=== PATIENT | male | born 1950 | race Caucasian/White ===

== ENCOUNTER 2019-02-05 09:17 | Outpatient (CLI) | payer MEDICARE ==
--- NOTE | 2019-02-05 09:39 | ULT ---
Bilateral renal ultrasound CLINICAL INDICATION: Renal Insufficiency COMPARISON: None FINDINGS: Right kidney: No solid mass, or hydronephrosis. Left kidney: Foci of decreased echogenicity of the left kidney are present. These indicate cysts and measure up to approximately 1.8 cm in diameter. No overt hydronephrosis. Urinary bladder: Normal IMPRESSION: Left renal cysts
== END 2019-02-05 09:18 | disposition home or self-care (01) ==
LOC: SCSULT 09:17
PROVIDERS: ATTEND Internal Medicine Nephrology
DX: N18.3 Chronic kidney disease, stage 3 (moderate) (principal)
CPT/HCPCS: 76770

== ENCOUNTER 2020-12-02 15:43 | Outpatient (CLI) | payer MEDICARE ==
[2020-12-02 16:39] LABS: #Basophils 0.1 10x3/uL (0.0-0.2); #Eosinphils 0.4 10x3/uL (0.0-0.5); #Monocytes 0.5 10x3/uL (0.0-1.1); #Neutrophils 5.6 10x3/uL (1.5-8.4); %Basophils 0.7 % (0.0-2.0); %Eosinophils 4.3 % (0.0-6.0); %Lymphocytes 26.3 % (18.0-47.0); %Monocytes 5.9 % (0.0-10.0); Hemoglobin 15.9 g/dL (13.5-17.5); Mean Corpuscular HGB CONC 34.3 g/dL (32.0-36.0); Mean Corpuscular Hemoglobin 32.1 pg (27.0-33.0); Mean Corpuscular Volume 93.5 fl (81.2-95.1); Mean Platelet Volume 10.8 fl (7.4-10.4); Platelet Count 271 10x3/uL (150-450); RBC Distribution Width 13.9 % (11.5-14.5); Red Blood Cell (RBC) Count 4.95 10x6/uL (4.32-5.72)
[2020-12-02 17:02] LABS: Anion Gap 16 mmol/L (10-20); BUN (Urea Nitrogen) 16 mg/dL (8.4-25.7); Calc. Creatinine Clearance 0 mL/min (70-130); Calcium 9.6 mg/dL (7.8-10.44); Carbon Dioxide 24 mmol/L (23-31); Chloride 104 mmol/L (98-107); Glucose 122 mg/dL (83-110); Potassium 4.4 mmol/L (3.5-5.1); Sodium 140 mmol/L (136-145)
[2020-12-03 00:58] LABS: SARS-CoV-2 PCR by NAA Not Detected (NotDetected)
== END 2020-12-02 15:44 | disposition home or self-care (01) ==
LOC: LABBT 15:43
PROVIDERS: ATTEND Orthopaedic Surgery Hand Surgery
DX: Z01.818 Encounter for other preprocedural examination (principal); M65.312 Trigger thumb, left thumb; Z20.822 Contact with and (suspected) exposure to COVID-19
CPT/HCPCS: 80048; 85025; 93005; U0003; U0005; 87635; 93010

== ENCOUNTER 2020-12-05 08:04 | Day surgery (SDC) | payer MEDICARE ==
[2020-12-03 11:42] VITALS: BMI 37.3
[2020-12-05] MEDS ORDERED: Betamet Acet/Betamet Na Ph 30 MG/5 ML VIAL ONE (09:25)
[2020-12-05] MEDS ORDERED: Bupivacaine PF 0.5% 30 ML VIAL ONE (09:25)
[2020-12-05] MEDS ORDERED: Bacitracin Zinc Ointment 30 gm TUBE ONE (09:25)
[2020-12-05] MEDS ORDERED: Sodium Chloride 0.9% 10 ML ONE (09:25)
[2020-12-05] MEDS ORDERED: Fentanyl 100 MCG/2 ML VIAL ONE (09:34)
[2020-12-05] MEDS ORDERED: Midazolam HCl 2 mg/2 ml Vial ONE (09:34)
[2020-12-05] MEDS ORDERED: Bupivacaine HCl 0.5%/Epinephrine 1:200,000/PF 30 ml Vial ONE (10:01)
[2020-12-05] MEDS ORDERED: ePHEDrine Sulfate 50 MG/10 ML VIAL ONE (10:01)
[2020-12-05] MEDS ORDERED: PHENYLEPHRINE-NS 100 MCG/ML 10 ML SYRINGE ONE (10:01)
[2020-12-05] MEDS ORDERED: Lidocaine 1% PF 5 ML VIAL ONE (10:01)
[2020-12-05] MEDS ORDERED: PROPOFOL 200 MG/20 ML VIAL ONE (10:01)
[2020-12-05] MEDS ORDERED: Ketorolac Tromethamine 30 MG/ML VIAL ONE (10:55)
== END 2020-12-05 12:01 | disposition home or self-care (01) ==
LOC: SDC 08:04
PROVIDERS: ATTEND Orthopaedic Surgery Hand Surgery
PROC: 0LN80ZZ Release Left Hand Tendon, Open Approach (ICD-10-PCS; principal; 2020-12-05)
DX: M65.312 Trigger thumb, left thumb (principal); G56.22 Lesion of ulnar nerve, left upper limb; G56.12 Other lesions of median nerve, left upper limb; G56.02 Carpal tunnel syndrome, left upper limb; I11.0 Hypertensive heart disease with heart failure; I50.32 Chronic diastolic (congestive) heart failure; I25.10 Atherosclerotic heart disease of native coronary artery without angina pectoris; G47.30 Sleep apnea, unspecified; E78.2 Mixed hyperlipidemia; E66.9 Obesity, unspecified; Z68.37 Body mass index [BMI] 37.0-37.9, adult; Z85.038 Personal history of other malignant neoplasm of large intestine; Z86.16 Personal history of COVID-19; Z87.891 Personal history of nicotine dependence; Z79.82 Long term (current) use of aspirin; Z79.899 Other long term (current) drug therapy; Z95.5 Presence of coronary angioplasty implant and graft
CPT/HCPCS: J0690; J0702; J1885; J2250; J2704; J3010; J3490; S0020

== ENCOUNTER 2021-01-08 13:20 | Outpatient (CLI) | payer MEDICARE | END 2021-01-08 13:21 | disposition home or self-care (01) | LOC: BICMAMMO 13:20 | PROVIDERS: ATTEND Orthopaedic Surgery | DX: Z13.820 Encounter for screening for osteoporosis (principal) | CPT/HCPCS: 77080 ==

== ENCOUNTER 2021-06-09 08:49 | Outpatient (CLI) | payer MEDICARE ==
[2021-06-09 10:00] LABS: Bilirubin Neg (Negative); Blood, Urine Negative (Negative); Clarity Clear (Clear); Glucose, Urine (Dipstick) Normal (Negative); Ketone, Urine Negative (Negative); Leukocyte Negative (Negative); Nitrite Negative (Negative); Protein, Urine (Dipstick) Negative (Neg-Trace); Urobilinogen Normal mg/dL (Less than 2)
[2021-06-09 11:11] LABS: #Basophils 0.1 10x3/uL (0.0-0.2); #Eosinphils 0.3 10x3/uL (0.0-0.5); #Monocytes 0.5 10x3/uL (0.0-1.1); #Neutrophils 5.6 10x3/uL (1.5-8.4); %Basophils 0.6 % (0.0-2.0); %Eosinophils 3.4 % (0.0-6.0); %Lymphocytes 24.1 % (18.0-47.0); %Monocytes 5.5 % (0.0-10.0); %Neutrophils 65.6 % (40.0-75.0); Hemoglobin 17.1 g/dL (13.5-17.5); Mean Corpuscular HGB CONC 33.5 g/dL (32.0-36.0); Mean Corpuscular Hemoglobin 32.4 pg (27.0-33.0); Mean Corpuscular Volume 96.8 fl (81.2-95.1); Mean Platelet Volume 10.5 fl (7.4-10.4); Platelet Count 241 10x3/uL (150-450); RBC Distribution Width 13.3 % (11.5-14.5); Red Blood Cell (RBC) Count 5.27 10x6/uL (4.32-5.72); White Blood Cell (WBC) Count 8.5 10x3/uL (3.5-10.5)
[2021-06-09 11:37] LABS: Anion Gap 15 mmol/L (10-20); BUN (Urea Nitrogen) 16 mg/dL (8.4-25.7); Calc. Creatinine Clearance 0 mL/min (70-130); Calcium 9.7 mg/dL (7.8-10.44); Carbon Dioxide 27 mmol/L (23-31); Chloride 102 mmol/L (98-107); Glucose 111 mg/dL (83-110); Potassium 4.1 mmol/L (3.5-5.1); Sodium 140 mmol/L (136-145)
[2021-06-09 18:02] LABS: SARS-CoV-2 PCR by NAA Not Detected (NotDetected)
== END 2021-06-09 08:50 | disposition home or self-care (01) ==
LOC: LABBT 08:49
PROVIDERS: ATTEND Orthopaedic Surgery Hand Surgery
DX: Z01.818 Encounter for other preprocedural examination (principal); G56.02 Carpal tunnel syndrome, left upper limb; G56.22 Lesion of ulnar nerve, left upper limb; Z20.822 Contact with and (suspected) exposure to COVID-19
CPT/HCPCS: 71046; 80048; 81003; 85025; U0003; U0005

== ENCOUNTER 2021-06-12 09:50 | Day surgery (SDC) | payer MEDICARE ==
[2021-06-10 13:59] VITALS: BMI 38.3
[2021-06-12] MEDS ORDERED: Bupivacaine PF 0.5% 30 ML VIAL ONE (11:50)
[2021-06-12] MEDS ORDERED: Bacitracin Zinc Ointment 30 gm TUBE ONE (11:50)
[2021-06-12] MEDS ORDERED: Betamet Acet/Betamet Na Ph 30 MG/5 ML VIAL ONE ×2 (11:50→13:37)
[2021-06-12] MEDS ORDERED: Midazolam HCl 2 mg/2 ml Vial ONE ×2 (12:19→12:46)
[2021-06-12] MEDS ORDERED: Fentanyl 100 MCG/2 ML VIAL ONE ×2 (12:19→12:20)
[2021-06-12] MEDS ORDERED: ceFAZolin 2 GM/DEX 5% 100 ML BAG ONE (12:32)
[2021-06-12] MEDS ORDERED: Propofol 1,000 MG/100 ML VIAL IV ONE ×2 (12:38→14:49)
[2021-06-12] MEDS ORDERED: Famotidine/PF 20 mg/2ml Vial ONE (12:45)
[2021-06-12] MEDS ORDERED: Albuterol Sulfate HFA (OR ONLY) ONE ×2 (12:50→12:51)
[2021-06-12] MEDS ORDERED: Ondansetron PF 4 MG/2 ML Vial ONE (12:51)
[2021-06-12] MEDS ORDERED: Bupivacaine HCl 0.5%/Epinephrine 1:200,000/PF 30 ml Vial ONE (12:51)
[2021-06-12] MEDS ORDERED: ePHEDrine 50 MG/ML VIAL ONE (12:51)
[2021-06-12] MEDS ORDERED: Dexamethasone 20 MG/5 ML VIAL ONE (12:51)
[2021-06-12] MEDS ORDERED: PHENYLEPHRINE-NS 100 MCG/ML 10 ML SYRINGE ONE (12:51)
== END 2021-06-12 19:21 | disposition home or self-care (01) ==
LOC: SDC 09:50
PROVIDERS: ATTEND Orthopaedic Surgery Hand Surgery
PROC: 01N50ZZ Release Median Nerve, Open Approach (ICD-10-PCS; principal; 2021-06-12)
PROC: 01N40ZZ Release Ulnar Nerve, Open Approach (ICD-10-PCS; 2021-06-12)
PROC: 3E0T3BZ Introduction of Anesthetic Agent into Peripheral Nerves and Plexi, Percutaneous Approach (ICD-10-PCS; 2021-06-12)
PROC: 0LX80ZZ Transfer Left Hand Tendon, Open Approach (ICD-10-PCS; 2021-06-12)
DX: M21.512 Acquired clawhand, left hand (principal); G56.22 Lesion of ulnar nerve, left upper limb; G56.02 Carpal tunnel syndrome, left upper limb; U09.9 Post COVID-19 condition, unspecified; G56.12 Other lesions of median nerve, left upper limb; M24.542 Contracture, left hand; G62.9 Polyneuropathy, unspecified; I25.10 Atherosclerotic heart disease of native coronary artery without angina pectoris; I73.9 Peripheral vascular disease, unspecified; I11.0 Hypertensive heart disease with heart failure; I50.32 Chronic diastolic (congestive) heart failure; I35.0 Nonrheumatic aortic (valve) stenosis; E78.2 Mixed hyperlipidemia; E66.9 Obesity, unspecified; Z68.38 Body mass index [BMI] 38.0-38.9, adult; Z87.891 Personal history of nicotine dependence; Z79.82 Long term (current) use of aspirin; Z79.899 Other long term (current) drug therapy; Z88.2 Allergy status to sulfonamides; Z88.5 Allergy status to narcotic agent; Z88.8 Allergy status to other drugs, medicaments and biological substances; Z95.5 Presence of coronary angioplasty implant and graft; Z98.890 Other specified postprocedural states
CPT/HCPCS: J0702; J1100; J2250; J2405; J2704; J3010; J3490; S0020; S0028

== ENCOUNTER 2024-08-14 05:55 | Day surgery (SDC) | payer MEDICARE ==
[2024-08-10 12:34] VITALS: BMI 36.9
[~2024-08-14 05:55] MED LIST: EPINEPHrine 0.3 MG in Ophthalmic Irrigation Solution 500 ML IRR SCH
[2024-08-14] MEDS ORDERED: Cyclopentolate 1% Opth Drop 2 ML BOT ONE (06:11)
[2024-08-14] MEDS ORDERED: PHENYLephrine 2.5% Ophth Soln 15 ml Bottle ONE (06:11)
[2024-08-14 06:49] LABS: #Basophils 0.05 10x3/uL (0.0-0.2); %Basophils 0.8 % (0.0-1.0); %Eosinophils 5.8 % (0.0-10.0); %Lymphocytes 30.5 % (21.0-51.0); %Monocytes 8.2 % (0.0-10.0); %Neutrophils 53.6 % (42.0-75.0); Hemoglobin 15.1 g/dL (14.0-18.0); Mean Corpuscular HGB CONC 34.3 g/dL (32.0-36.0); Mean Corpuscular Hemoglobin 34.2 pg (27.0-31.0); Mean Corpuscular Volume 99.8 fL (78.0-98.0); Mean Platelet Volume 10.5 fL (7.4-10.4); Platelet Count 223 10x3/uL (130-400); Red Blood Cell (RBC) Count 4.41 mill/uL (4.70-6.10)
[2024-08-14] MEDS ORDERED: Midazolam HCl 2 mg/2 ml Vial ONE (06:57)
[2024-08-14] MEDS ORDERED: Lidocaine 1% PF 5 ML VIAL ONE (06:57)
[2024-08-14] MEDS ORDERED: fentaNYL PF 100 MCG/2 ML SYRINGE ONE (06:57)
[2024-08-14] MEDS ORDERED: PROPOFOL 20 ML ONE (06:57)
[2024-08-14 07:01] LABS: Anion Gap 13 mmol/L (10-20); BUN (Urea Nitrogen) 18 mg/dL (8.4-25.7); Calc. Creatinine Clearance 106 mL/min (70-130); Carbon Dioxide 26 mmol/L (23-31); Chloride 106 mmol/L (98-107); Estimated GFR 77; Glucose 102 mg/dL (83-110); Potassium 4.2 mmol/L (3.5-5.1); Sodium 141 mmol/L (136-145)
[2024-08-14] MEDS ORDERED: Maxitrol 0.1% Opth Oint 3.5 GM TUBE ONE (07:44)
[2024-08-14] MEDS ORDERED: Lidocaine 4% PF 5 ML AMP ONE (07:44)
[2024-08-14] MEDS ORDERED: Bupivacaine 0.75% 10 ML VIAL ONE (07:44)
[2024-08-14] MEDS ORDERED: Triamcinolone 40 MG/ML VIAL ONE (07:44)
[2024-08-14] MEDS ORDERED: CEFAZOLIN 1 GM VIAL ONE (07:44)
[2024-08-14] MEDS ORDERED: Ondansetron PF 4 MG/2 ML Vial ONE (08:12)
== END 2024-08-14 09:06 | disposition home or self-care (01) ==
LOC: SDC 05:55
PROVIDERS: ATTEND Ophthalmology Retina Specialist
PROC: 08T43ZZ Resection of Right Vitreous, Percutaneous Approach (ICD-10-PCS; principal; 2024-08-14)
DX: H33.021 Retinal detachment with multiple breaks, right eye (principal); I10 Essential (primary) hypertension; E78.5 Hyperlipidemia, unspecified; I25.10 Atherosclerotic heart disease of native coronary artery without angina pectoris; G47.30 Sleep apnea, unspecified; Z85.038 Personal history of other malignant neoplasm of large intestine; Z88.5 Allergy status to narcotic agent; Z95.5 Presence of coronary angioplasty implant and graft; Z98.890 Other specified postprocedural states; Z90.89 Acquired absence of other organs; Z87.891 Personal history of nicotine dependence
CPT/HCPCS: 67108; 80048; 85025; J0171; J2250; J2405; J2704; 67025; 93005; 93010; J0690; J3301; J3490